=== PATIENT | female | born 1940 | race Caucasian/White ===

== ENCOUNTER → 2017-10-23 | Outpatient (CLI) | payer MEDICARE, BC ==
[~2017-10-23] MED LIST: ASPIRIN 81M81 MG/TA2 PO; FOSAMAX 70MG TA70 MG PO; FOSAMAX PO; LABETALOL; PRINZIDE 12.5 M1 TA1 PO
== END ==
LOC: MC.RAD 13:42
DX: Z12.31 Encounter for screening mammogram for malignant neoplasm of breast (principal); N64.89 Other specified disorders of breast

== ENCOUNTER → 2017-10-29 | Outpatient (CLI) | payer MEDICARE, BC | LOC: MC.RAD 10:46 | DX: N63.21 Unspecified lump in the left breast, upper outer quadrant (principal) ==

== ENCOUNTER → 2017-11-05 | Outpatient (CLI) | payer MEDICARE, BC | LOC: MC.RAD 07:47 | DX: N63.20 Unspecified lump in the left breast, unspecified quadrant (principal) ==

== ENCOUNTER 2018-09-10 06:42 | Day surgery (SDC) | payer MEDICARE, BC ==
[~2018-09-10] VITALS: Ht 162.6 cm; Wt 60.3 kg
[2018-09-10] MEDS ORDERED: ELIQUIS 2.5 PO (07:13)
[2018-09-10] MEDS ORDERED: CALCIUM 600MG+D1 TAB PO (07:14)
[2018-09-10] MEDS ORDERED: BETAPACE AF80 MG/TA1 PO (07:14)
[2018-09-10] MEDS ORDERED: ARIMIDEX1 MG PO (07:14)
[2018-09-10] MEDS ORDERED: CARTIA XT120 MG PO (07:16)
[2018-09-10 07:17] VITALS: BP 108/60; PULSE 71; TEMP 97.7
[2018-09-10] MEDS ORDERED: PRESERVISION1 SGL PO (07:17)
[2018-09-10] MEDS ORDERED: TYLENOL 325MG325 MG PO (07:17)
[2018-09-10 09:25] VITALS: BP 113/60; PULSE 70; TEMP 97.4
[2018-09-10 09:40] VITALS: BP 115/61; PULSE 75
[2018-09-10 09:55] VITALS: BP 117/74; PULSE 70
== END 2018-09-10 10:16 | disposition home or self-care (01) ==
LOC: SDCO 06:42
DX: J18.9 Pneumonia, unspecified organism (principal); I48.91 Unspecified atrial fibrillation; Z79.01 Long term (current) use of anticoagulants; K44.9 Diaphragmatic hernia without obstruction or gangrene; M81.0 Age-related osteoporosis without current pathological fracture; Z85.3 Personal history of malignant neoplasm of breast; Z92.3 Personal history of irradiation; Z79.82 Long term (current) use of aspirin; Z79.899 Other long term (current) drug therapy
CPT/HCPCS: J2704; J7120

== ENCOUNTER → 2018-10-26 | Outpatient (CLI) | payer MEDICARE, BC ==
[~2018-10-26] MED LIST changes: +ARIMIDEX1 MG PO; +BETAPACE AF80 MG/TA1 PO; +CALCIUM 600MG+D1 TAB PO; +CARTIA XT120 MG PO; +ELIQUIS 2.5 PO; +PRESERVISION1 SGL PO; +TYLENOL 325MG325 MG PO
== END ==
LOC: MC.RAD 08:14
DX: Z12.31 Encounter for screening mammogram for malignant neoplasm of breast (principal); C50.412 Malignant neoplasm of upper-outer quadrant of left female breast; Z98.890 Other specified postprocedural states; Z92.3 Personal history of irradiation

== ENCOUNTER → 2019-10-27 | Outpatient (CLI) | payer MEDICARE, BC | LOC: MC.RAD 11:16 | DX: Z12.31 Encounter for screening mammogram for malignant neoplasm of breast (principal); C50.412 Malignant neoplasm of upper-outer quadrant of left female breast ==

== ENCOUNTER → 2020-10-30 | Outpatient (CLI) | payer MEDICARE, BC | LOC: MC.RAD 11:30 | DX: Z12.31 Encounter for screening mammogram for malignant neoplasm of breast (principal); C54.1 Malignant neoplasm of endometrium; Z85.3 Personal history of malignant neoplasm of breast ==

== ENCOUNTER → 2021-10-02 | Outpatient (CLI) | payer MEDICARE, BC | LOC: COL.LAB 08:03 | DX: R94.6 Abnormal results of thyroid function studies (principal); R53.83 Other fatigue ==

== ENCOUNTER → 2021-11-08 | Outpatient (CLI) | payer MEDICARE, BC | LOC: MC.RAD 07:30 | DX: Z12.31 Encounter for screening mammogram for malignant neoplasm of breast (principal); Z98.890 Other specified postprocedural states; Z85.3 Personal history of malignant neoplasm of breast ==